=== PATIENT | female | born 1965 | race Caucasian/White ===

== ENCOUNTER 2017-01-08 18:05 | Emergency (ER) | payer OTHER ==
[~2017-01-08] VITALS: Ht 170.2 cm; Wt 108.9 kg
--- NOTE | ~2017-01-08 | CR72 ---
[facility] A Service of [facility] [place] RADIOLOGY TEXT RESULTS PATIENT: NOREEN GUZMAN LOCATION: SED : 61 UNIT #: [id number] AGE: [address]: Cortney Pepe MD SEX: F ORDER DR: [id number] [address] [address] [id number] E MR#: [id number] Acc #: [id number] NAME: NOREEN GUZMAN : 1965 SEX: F STUDY DATE/TIME: 01/08/2017 20:19 UNIT: SED ROOM: STUDY DESCRIPTION: CR Chest Single View Portable Attending Physician: Cortney Pepe M.D. Ordering Physician: Reddy Woodruff M.D. Primary Care Physician: Wen Hollis A.P.R.N. MEDICAL IMAGING REPORT This report is preliminary unless electronic signature is present. EXAM Single view chest. INDICATION Shortness of air and chest pain for 3 days. TECHNIQUE Single portable AP view of the chest compared to 06/13/2016. Heart and mediastinal contours normal. The lungs are clear. No pleural effusion. IMPRESSION No acute cardiopulmonary findings. Dictated by... Siddharth Steward M.D. THIS IS AN ELECTRONICALLY VERIFIED REPORT Siddharth Steward M.D. at 01/09/2017 7:51 PM CHANI/cherelle TD: 01/09/2017 18:47 JOB #: [id number] MEDICAL IMAGING REPORT Page 1 of 1
--- NOTE | ~2017-01-08 | CT2 ---
[facility] A Service of [facility] RADIOLOGY TEXT RESULTS PATIENT: NOREEN GUZMAN LOCATION: SED : 61 UNIT #: [id number] AGE: [address]: Cortney Pepe MD SEX: F ORDER DR: [id number] [address] [address] [id number] E MR#: [id number] Acc #: [id number] NAME: NOREEN GUZMAN : 1965 SEX: F STUDY DATE/TIME: 01/08/2017 20:32 UNIT: SED ROOM: STUDY DESCRIPTION: CT Abd and Pelv W Cont Attending Physician: Cortney Pepe M.D. Ordering Physician: Cortney Pepe M.D. Primary Care Physician: Wen Hollis A.P.R.N. MEDICAL IMAGING REPORT This report is preliminary unless electronic signature is present. EXAM CT abdomen and pelvis INDICATIONS Chest pain radiating into the left lower quadrant. Abdominal pain and nausea for [address] of the abdomen and pelvis utilizing 100 mL Isovue-370 IV contrast. Coronal and sagittal reconstructions were obtained. This CT exam was performed with one or more of the following radiation dose reduction techniques: Automatic exposure control, adjustment of mA and/or kV according to patient size, and iterative reconstruction. COMPARISON None available. FINDINGS ABDOMEN: The liver is enlarged measuring up to 20 cm in length. There is diffuse hepatic steatosis. Gallbladder is surgically absent. The pancreas, spleen, and adrenal glands are within normal limits. Kidneys enhance normally. The bowel is nondilated. PELVIS: The uterus and ovaries are within normal limits. There is a 3.4-cm fibroid in the uterine fundus. No enlarged pelvic or inguinal lymph nodes. Bladder is decompressed. IMPRESSION 1. No acute findings in the abdomen or pelvis. 2. Hepatomegaly and hepatic steatosis. 3. Uterine fibroid. [facility] A Service [facility] RADIOLOGY TEXT RESULTS PATIENT: NOREEN GUZMAN LOCATION: SED : 61 UNIT #: [id number] AGE: [address]: Cortney Pepe MD SEX: F ORDER DR: Dictated by... Siddharth Steward M.D. THIS IS AN ELECTRONICALLY VERIFIED REPORT Siddharth Steward M.D. at 01/09/2017 7:51 PM RPC/psc TD: 01/09/2017 18:52 JOB #: [id number] MEDICAL IMAGING REPORT Page 1 of 1
--- NOTE | ~2017-01-08 | EKG ---
PATIENT: NOREEN GUZMAN UNIT #: [id number] Ventricular Rate: 62 BPM Atrial Rate: 62 BPM P-R Interval: 162 ms QRS Duration: 88 ms Q-T Interval: 426 ms QTC Calculation(Bezet): 432 ms P [place]: 33 degrees Calculated T [place]: 38 degrees Diagnosis Line: Normal sinus rhythm Diagnosis Line: Anterior infarct (cited on or before 08-JAN-2017) Diagnosis Line: Abnormal ECG Diagnosis Line: When compared with ECG of 08-JUN-2016 18:45, Diagnosis Line: Serial changes of Anterior infarct Present Diagnosis Line: Confirmed by ANNIE REYES MD ([id number]) on Diagnosis Line: 01/10/2017 3:09:30 PM INTERPRETING MD: ERIC SEXTON
--- NOTE | ~2017-01-08 | CT71 ---
[facility] A Service of [facility] RADIOLOGY TEXT RESULTS PATIENT: NOREEN GUZMAN LOCATION: SED : 61 UNIT #: [id number] AGE: [address]: Cortney Pepe MD SEX: F ORDER DR: [id number] [address] [address] [id number] E MR#: [id number] Acc #: [id number] NAME: NOREEN GUZMAN : 1965 SEX: F STUDY DATE/TIME: 01/08/2017 20:29 UNIT: SED ROOM: STUDY DESCRIPTION: CT Head Wo Contrast Attending Physician: Cortney Pepe M.D. Ordering Physician: Cortney Pepe M.D. Primary Care Physician: Wen Jim [facility] IMAGING REPORT This report is preliminary unless electronic signature is present. EXAM CT head. INDICATIONS Chest pain. Headache. Left sided headache. COMPARISON CT head 03/05/2016. TECHNIQUE CT of the head without contrast. Axial noncontrast images were obtained from the skull base to the vertex. This CT exam was performed with one or more of the following radiation dose reduction techniques: automatic exposure control, adjustment of mA and/or kV according to patient size, and iterative reconstruction. FINDINGS Ventricular size and configuration are normal. There is no evidence of acute infarct or hemorrhage. There are no extraaxial fluid collections. No mass lesion or mass effect is seen. There are no skull fractures. IMPRESSION Normal noncontrast head CT. Dictated by... Siddharth Steward M.D. THIS IS AN ELECTRONICALLY VERIFIED REPORT Siddharth Steward M.D. at 01/09/2017 7:51 PM RPC/rafy TD: 01/09/2017 18:49 [facility] A Service of [facility] RADIOLOGY TEXT RESULTS PATIENT: NOREEN GUZMAN LOCATION: SED : 61 UNIT #: [id number] AGE: [address]: Cortney Pepe MD SEX: F ORDER DR: JOB #: [id number] MEDICAL IMAGING REPORT Page 1 of 1
[~2017-01-08 18:05] MED LIST: ANEXSIA 5/325 M1 TA1 PO; ANTIVERT PO; ATARAX PO; ATENOLOL PO; ATIVAN0.5 M1 PO; AZITHROMYCIN250 MG PO; BACTRIM DS TABL1 TA1 PO; BACTRIM DS TABL1 TA2 PO; CIPRO PO; CIPROFLOXACIN500 M1 PO; CLONAZEPAM0.5 MG PO; CLONIDINE HCL0.1 MG PO; COLACE PO; DIFLUCAN PO; FISH OIL 1,0001 EAC1 PO; FLOMAX0.4 M1 DOB; GLUCOTROL2.5 MG/BOT PO; IBUPROFEN800 MG PO; KLONOPIN PO; KLONOPIN1 MG PO; LEVOXYL; LEVOXYL150 MCG PO; LISINOPRIL PO; MACROBID100 M1 PO; MELOXICAM15 MG PO; METFORMIN HYDRO25 GM PO; METFORMIN PO; MICRONASE5 M2; MULTI-DAY VITAM1 TAB PO; NAPROSYN500 MG PO; NYSTATIN15 GM OINT PV; PAIN RELIEF650 MG PO; PERCOCET 7.5-31 EACH PO; SEROQUEL PO; SKELAXIN PO; TYLENOL #3 PO; ULTRAM PO; VISTARIL PO; ZOCOR20 MG PO; ZOFRAN ODT4 MG PO
[2017-01-08 18:38] LABS: BASOPHIL# 0.1 X10e3 (0-0.3); BASOPHIL% 0.7 % (0-2.5); EOSINOPHIL# 0.3 X10e3 (0-0.7); EOSINOPHIL% 3.6 % (0.0-7.0); HEMATOCRIT 38.7 % (35.0-45.0); HEMOGLOBIN 13.2 gm/dL (12.0-16.0); LYMPHOCYTE# 2.4 X10e3 (1.0-3.5); LYMPHOCYTE% 24.9 % (17.0-45.0); MEAN CELL VOLUME 87.7 FL (83-96); MEAN CORPUSCULAR HEMOGLOBIN 29.8 PG (28-34); MEAN PLATELET VOLUME 8.9 FL (6.5-11.5); MONOCYTE# 0.5 X10e3 (0-1.0); MONOCYTE% 4.7 % (3.0-12.0); NEUTROPHIL# 6.3 X10e3 (1.5-7.1); NEUTROPHIL% 66.1 % (40-75); PLATELET COUNT 284 X10e3 (140-420); RED BLOOD COUNT 4.42 X10e (3.90-5.30); RED CELL DISTRIBUTION WIDTH 13.8 % (11.0-15.5); WHITE BLOOD COUNT 9.6 X10e3 (4.0-10.5)
[2017-01-08 18:39] LABS: DIFF IND NO
[2017-01-08 18:50] LABS: PARTIAL THROMBOPLASTIN TIME 25.7 SECONDS (25.6-38.1)
[2017-01-08 18:52] LABS: ALBUMIN SERUM 4.5 g/dL (3.5-5.0); ALKALINE PHOSPHATASE 87 U/L (32-92); ALT (SGPT) 25 U/L (10-40); AST (SGOT) 19 U/L (10-42); BILIRUBIN,TOTAL 0.4 mg/dL (0.2-2.0); BLOOD UREA NITROGEN 28 mg/dL (9-23); BUN/CREATININE RATIO 25.45; CARBON DIOXIDE 26 mmol/L (22-31); CHLORIDE 102 mmol/L (100-111); CREATININE SERUM 1.1 mg/dL (0.6-1.4); GLOM FILT RATE Estimated 57.3 mL/min (>60); GLUCOSE FASTING 332 mg/dL (70-110); MAGNESIUM 1.8 mg/dL (1.6-3.0); POTASSIUM 3.9 mmol/L (3.5-5.1); PROTEIN TOTAL SERUM 7.3 g/dL (6.0-8.3); SODIUM 133 mmol/L (135-145)
[2017-01-08 18:55] LABS: BILIRUBIN, DIRECT <0.1 mg/dL (0.0-0.2); BILIRUBIN,INDIRECT 0.3 mg/dL (0.0-0.9)
[2017-01-08 20:17] LABS: URINE APPEARANCE CLEAR; URINE BILIRUBIN NEG (NEG); URINE BLOOD NEG (NEG); URINE COLOR YELLOW; URINE GLUCOSE 300 MG/DL (NORM); URINE KETONE TRACE (NEG); URINE LEUKOCYTE ESTERASE NEG (NEG); URINE NITRATE NEG (NEG); URINE PH 5.5 (5-8); URINE PROTEIN NEG (NEG); URINE SPECIFIC GRAVITY 1.025 (1.003-1.035); URINE UROBILINOGEN 0.2 MG/DL (NORM)
[2017-01-08 20:18] LABS: MICRO INDICATED? NO; URINE SOURCE CLEAN CATCH
[2017-01-08 20:41] LABS: POC - CKMB <1.0 ng/mL (0.0-7.9); POC - TROPONIN <0.05 ng/mL (<=0.05)
[2017-01-12 15:34] LABS: POC - CKMB <1.0 ng/mL (0.0-7.9)
[2017-01-12 15:35] LABS: POC - TROPONIN <0.05 ng/mL (<=0.05)
== END 2017-01-08 22:37 | disposition home or self-care (01) ==
LOC: SED 18:05
PROVIDERS: Emergency Medicine
DX: M54.2 Cervicalgia (principal); R51 Headache; R07.9 Chest pain, unspecified; R10.9 Unspecified abdominal pain; F41.9 Anxiety disorder, unspecified; Z90.49 Acquired absence of other specified parts of digestive tract; Z79.899 Other long term (current) drug therapy
CPT/HCPCS: 36415; 70450; 71010; 74177; 80048; 80076; 81003; 82550; 82553; 83735; 83880; 84443; 84484; 85025; 85610; 85730; 93005; 96374; 96375; 96376; 99284; J1885; J2060; Q9967